=== PATIENT | male | born 1995 | race African-American/Black ===

== ENCOUNTER 2024-09-10 07:13 | Inpatient (IN) | payer SELFPAY ==
[~2024-09-10] VITALS: Ht 182.9 cm; Wt 93.0 kg
[2024-09-10] MEDS: ACETAMINOPHEN 325MG TABLET PO ONE (07:57)
[2024-09-10] MEDS: ONDANSETRON HCL 4MG TABLET PO ONE (07:58)
[2024-09-10 08:13] LABS: BASOPHILS % 0.3 % (0.0-2.0); EOSINOPHILS % 0.3 % (0.0-5.0); HEMATOCRIT. 52.5 % (42.0-52.0); HEMOGLOBIN. 17.3 g/dL (14.0-18.0); LYMPHOCYTES % 9.8 % (20.0-50.0); MEAN CORPUSCULAR HEMOGLOBIN 30.6 pg (28.0-32.0); MEAN CORPUSCULAR VOLUME 92.7 fL (80.0-94.0); MEAN PLATELET VOLUME 9.1 fl (7.4-10.4); MONOCYTES % 11.6 % (2.0-8.0); PLATELET 284 x1000/uL (130-400); RED BLOOD CELL COUNT 5.66 mill/uL (4.7-6.1); RED CELL DISTRIBUTION WIDTH 13.5 % (11.6-14.6); WHITE BLOOD COUNT 8.1 x1000/uL (4.5-11.0)
[2024-09-10 08:20] LABS: CHLORIDE 98 mEq/L (98-107); POTASSIUM 4.4 mEq/L (3.5-5.1); SODIUM 136 mEq/L (136-145)
[2024-09-10 08:22] LABS: CARBON DIOXIDE 30 mEq/L (21-32)
[2024-09-10 08:24] LABS: PROTHROMBIN TIME 11.4 sec (9.6-11.0)
[2024-09-10] MEDS ORDERED: ONDA4TAB50 PO (08:25)
[2024-09-10] MEDS ORDERED: TOPUD PO (08:25)
[2024-09-10 08:27] LABS: CREATININE 1.7 mg/dL (0.6-1.3); GLUCOSE 110 mg/dL (70-105); UREA NITROGEN BLOOD 19 mg/dL (9-23)
[2024-09-10 08:28] LABS: ALANINE AMINOTRANSFERASE 25 IU/L (10-49); ASPARTATE AMINOTRANSFERASE 29 IU/L (<34)
[2024-09-10 08:29] LABS: ALBUMIN 5.5 g/dL (3.2-4.8); BILIRUBIN DIRECT 0.4 mg/dL (<=3.0); BILIRUBIN TOTAL 1.3 mg/dL (0.1-1.0); PROTEIN TOTAL 8.6 g/dL (6.0-8.3)
[2024-09-10 08:32] LABS: CLARITY URINE CLEAR (CLEAR); COLOR URINE DARK YELLOW (YELLOW); GLUCOSE URINE NEGATIVE (NEGATIVE); KETONES URINE 1+ (NEGATIVE); LEUKOCYTE ESTERASE URINE TRACE (NEGATIVE); NITRITE URINE NEGATIVE (NEGATIVE); OCCULT BLOOD URINE NEGATIVE (NEGATIVE); PH URINE 5.5 (4.5-8.0); PROTEIN URINE 1+ (NEGATIVE); SPECIFIC GRAVITY URINE 1.036 (1.005-1.030)
[2024-09-10 08:53] LABS: BACTERIA URINE NONE SEEN; HYALINE CASTS URINE 0-5 /lpf; MUCUS URINE 1+ /lpf (NONE/TRACE); SQUAMOUS EPITHELIAL CELL URINE 1+ /lpf (RARE/1+); WBC URINE 0-2 /hpf (0-2); YEAST URINE NONE SEEN
[2024-09-10] MEDS: SODIUM CHLORIDE 0.9% 1,000 ML IV ONE (09:50)
[2024-09-10 16:00] VITALS: BP 103/49; PULSE 80; RESP 20; TEMP 36.9474; O2SAT 98
[2024-09-10] MEDS ORDERED: NALOXONE HCL 0.4MG/ML VIAL IV PRN (16:15)
[2024-09-10] MEDS ORDERED: ONDANSETRON HCL 4MG/2ML INJ IV PRN (16:15)
[2024-09-10] MEDS ORDERED: ACETAMINOPHEN 325MG TABLET PO PRN (16:15)
[2024-09-10] MEDS ORDERED: ZOLPIDEM TARTRATE 5MG TABLET PO PRN (16:15)
[2024-09-10] MEDS: SODIUM CHLORIDE 0.9% 1,000 ML IV SCH (16:26)
[2024-09-10] MEDS: ENOXAPARIN 40MG/0.4ML SYR SUBCUT SCH (16:26)
[2024-09-10] MEDS ORDERED: HALOPERIDOL LACTATE 5MG/ML VIAL IM PRN (17:30)
[2024-09-10] MEDS ORDERED: LORAZEPAM 2MG/ML INJ IV PRN (17:30)
[2024-09-11 01:34] VITALS: BP 111/52; PULSE 60; RESP 18; TEMP 36.83628; O2SAT 98
[2024-09-11 05:44] VITALS: BP 119/47; PULSE 60; RESP 18; TEMP 36.72516; O2SAT 94
[2024-09-11 07:43] LABS: MEAN CORPUSCULAR HEMOGLOBIN 30.3 pg (28.0-32.0); MEAN CORPUSCULAR HGB CONC 32.6 g/dL (31.0-37.0); MEAN CORPUSCULAR VOLUME 92.9 fL (80.0-94.0); MEAN PLATELET VOLUME 10.1 fl (7.4-10.4); PLATELET 225 x1000/uL (130-400); RED BLOOD CELL COUNT 4.95 mill/uL (4.7-6.1); RED CELL DISTRIBUTION WIDTH 13.4 % (11.6-14.6); WHITE BLOOD COUNT 4.1 x1000/uL (4.5-11.0)
[2024-09-11 07:48] LABS: CHLORIDE 104 mEq/L (98-107); POTASSIUM 4.1 mEq/L (3.5-5.1); SODIUM 138 mEq/L (136-145)
[2024-09-11 07:49] LABS: CALCIUM 9.5 mg/dL (8.7-10.4); CARBON DIOXIDE 26 mEq/L (21-32)
[2024-09-11 07:54] LABS: CREATININE 1.1 mg/dL (0.6-1.3); GLUCOSE 83 mg/dL (70-105)
[2024-09-11 07:55] LABS: UREA NITROGEN BLOOD 15 mg/dL (9-23)
[2024-09-11 07:55] LABS: DIFFERENTIAL COMMENT 1
[2024-09-11] MEDS: PANTOPRAZOLE SODIUM 40 MG/VIAL IV SCH (09:21)
[2024-09-11] MEDS: MORPHINE SULFATE 2 MG/ML INJ (NOT FOR IM USE) IV PRN (10:22)
[2024-09-11 10:52] VITALS: BP 112/65; PULSE 64; RESP 17; TEMP 36.7516
[2024-09-11 12:00] VITALS: BP 112/65; PULSE 64; RESP 17; TEMP 36.72516; O2SAT 100
[2024-09-11 15:35] LABS: ATYPICAL LYMPHOCYTES 1
[2024-09-11 15:36] LABS: PLATELET ESTIMATE NORMAL
[2024-09-11 16:00] VITALS: BP 102/45; PULSE 71; RESP 18; TEMP 36.78072; O2SAT 99
[2024-09-11 16:39] LABS: *AMPHETAMINES SCREEN URINE NEGATIVE (NEGATIVE); *BARBITURATES SCREEN URINE NEGATIVE (NEGATIVE); *BENZODIAZEPINES SCREEN URINE NEGATIVE (NEGATIVE); *COCAINE SCREEN URINE NEGATIVE (NEGATIVE)
[2024-09-11 16:40] LABS: CANNABINOID URINE SCREEN PRESUMPTIVE POSITIVE (NEGATIVE); ECSTASY MDMA SCREEN URINE NEGATIVE (NEGATIVE); METHADONE URINE SCREEN NEGATIVE (NEGATIVE); OPIATES URINE SCREEN PRESUMPTIVE POSITIVE (NEGATIVE); PHENCYCLIDINE URINE SCREEN NEGATIVE (NEGATIVE)
[2024-09-11 20:00] VITALS: BP 103/33; PULSE 64; RESP 20; TEMP 36.61404; O2SAT 95
[2024-09-12] VITALS (8 sets, daily range): BP systolic 97–125; BP diastolic 26–56; PULSE 50–98; RESP 19–20; TEMP 36.22512–36.72516; O2SAT 93–100
[2024-09-12] MEDS ORDERED: FAMO-135 MT (12:47)
[2024-09-13] MEDS: RISPERIDONE 1MG TABLET PO SCH (08:47)
[2024-09-13] MEDS ORDERED: RISPERIDONE 1MG TABLET PO SCH (21:00)
== END 2024-09-13 16:30 | disposition left against medical advice (07) | DRG 241 ==
LOC: ER 07:40 → 5WST 13:36 → 6EST 09-11 09:35
PROVIDERS: ADMIT Internal Medicine; ATTEND Internal Medicine
DX: K29.70 Gastritis, unspecified, without bleeding (principal); N17.9 Acute kidney failure, unspecified; E80.6 Other disorders of bilirubin metabolism; Z53.29 Procedure and treatment not carried out because of patient's decision for other reasons; F31.9 Bipolar disorder, unspecified; F20.9 Schizophrenia, unspecified; Z59.00 Homelessness unspecified; Z79.899 Other long term (current) drug therapy
CPT/HCPCS: 36415; 76705; 80048; 80076; 80305; 81003; 85025; 99285; J1650; J2270; J2470; J7030; Q0162